=== PATIENT | female | born 1940 | race Caucasian/White ===

== ENCOUNTER → 2023-09-18 01:21 | Outpatient (CLI) | payer MEDICARE, OTHER, SELFPAY ==
--- NOTE | 2023-09-18 | DI.NM_ITS ---
Exam(s) NM BONE SCAN WHOLE BODY GRP EXAM: NM BONE SCAN WHOLE BODY GRP CLINICAL HISTORY: S/P RADIOTHERAPY Z92.3 HX BREAST CANCER, RT UPPER ARM/LOW BACK DISCOMFORT. TECHNIQUE: Injected Dose: 25 mCi Tc-99m MDP Delayed Images: 2-3 hours. COMPARISON: Bone survey 09/12/2017 FINDINGS: Symmetric axial uptake. Bilateral renal excretion is identified. No focal area of intense suspicious uptake is seen. Mild midthoracic dextroscoliosis. Increased activity on the right side at the L2-3 level of the lumbar spine likely reflecting degenerative changes. Few foci of increased activity is seen in both feet as well as right 1st MTP joint, consistent with degenerative changes. Increased a ctivity seen in both AC joints, consistent with degenerative changes as noted on plain films. No spe cific focus of increased activity is seen in the right arm or shoulder. No increased activity in the right hip. Bilateral knee replacements noted. IMPRESSION: 1. Findings consistent with degenerative changes. No evidence of metastatic disease. DATA REPOSITORY:
== END ==
PROVIDERS: Visit Provider Radiology Radiation Oncology
DX: N13.39 Other hydronephrosis (principal); M51.36 Other intervertebral disc degeneration, lumbar region; Z92.3 Personal history of irradiation
CPT/HCPCS: 78306